=== PATIENT | male | born 1950 | race Caucasian/White ===

== ENCOUNTER 2023-12-07 06:30 | Day surgery (SDC) | payer MEDICARE, OTHER, SELFPAY ==
[2023-11-20 09:47] VITALS: BMI 28.4
[2023-12-07] VITALS (8 sets, daily range): BP systolic 113–138; BP diastolic 76–94; BMI 28.4
[2023-12-07] MEDS: TYLENOL 1000 MG PO (08:57)
[2023-12-07] MEDS: NORMOSOL-R 1000 IV (08:59)
--- NOTE | 2023-12-07 09:10 | W.SUR.PREOP ---
Pre-Operative Surgical Note
-
I have examined this patient prior to the performance of the scheduled procedure.
The patient's condition is unchanged from the time of the current History and
Physical and the patient is able to undergo the scheduled procedure.
The patient endorses drinking 2 Manhattans last night (4 equivalents of hard alcohol), and every night this week. In addition he smoked a small cigar this morning despite our preprocedure plan to not smoke on the day of surgery and stop drinking a
week before the procedure. He reiterates that he has no history of delirium tremens. He understands that he is a high risk for respiratory complications as well as perioperative wound complications and morbidity. He accepts these increased risks.
Our initial plan was to do this under general anesthesia LMA however given his smoking and drinking as well as his underlying comorbidities will do this under local and sedation.
--- NOTE | 2023-12-11 09:50 | W.IMMPOSTOP ---
Surgical Immed Post Op Note
-
Primary Surgeon: Refugio Horn MD
Assisting Surgeon: None
Decorating Kiln Operator: Josemanuel Gutierrez PGY1
Pre-op Diagnosis: Umbilical hernia
Post-op Diagnosis: Same
Procedure Performed: Open umbilical hernia repair with mesh
Anesthesia Type: General
Specimen / Cultures: None
Estimated Blood Loss: 1 cc
Complications: None
Operative Findings: 1.4 cm umbilical hernia repaired with a 4 x 4 centimeter piece of Bard soft mesh placed in the preperitoneal space ([place]). Overlying fascia closed with a running 0 PDS suture. Gauze suction dressing placed.
--- NOTE | 2023-12-15 11:16 | OR.RPT ---
Operative Report
Operative Report
Patient Name: Flaco Simons
: 1950
Date of Operation: 12/11/2023
Preoperative Diagnosis: Umbilical hernia
Postoperative Diagnosis: Same
Procedure(s):
Open umbilical hernia
Surgeon(s):
Dr. Horn
Tank Processor(s):
Josemanuel Gutierrez, PGY1
Anesthesia: General
Estimated Blood Loss: 1 cc
Urine Output: None
Drains/Lines/Implants: 4 x 4 centimeter Bard soft mesh (uncoated, macro porous polypropylene)
Specimens: None
Indication for surgery:
The patient has a symptomatic umbilical hernia. After review of their therapeutic options, they elected to pursue open repair.
Operative Findings: 1.4 cm umbilical hernia repaired with a 4 x 4 centimeter piece of Bard soft mesh placed in the preperitoneal space ([place]). Overlying fascia closed with a running 0 PDS suture. Gauze suction dressing placed.
Details of the operation:
After successful induction of anesthesia, the patient was prepped and draped in the supine position. A team timeout was performed confirming administration of DVT prophylaxis, IV antibiotics and SCDs. The skin was anesthestized with 0.25% Marcaine
and an infraumbilical incision was made and dissection carried down to the fascia. The hernia sac was then encircled and carefully dissected off of the umbilical stalk and returned to the abdomen. The defect measured 1.4 cm. The preperitoneal fat
was then dissected off of the posterior rectus sheath to create a pocket large enough to accommodate the mesh to ensure the 4 x 4 centimeter Bard soft mesh mesh laid completely flat in the preperitoneal space. A 0 PDS running suture was then used
to close the defect. The umbilical stalk was then tacked down to the fascia with a 3-0 Vicryl suture. The dermis was then approximated with interrupted 3-0 Vicryl sutures followed by Dermabond. Once the glue had dried, we placed a folded up piece
of gauze into the umbilicus and covered it with a large Tegaderm dressing and then suctioned out the gauze to create a vacuum dressing to help obliterate the space. The patient returned to the Recovery Room in stable condition. Sponge and
instrument counts were correct. No specimens sent to Pathology.
I was the attending physician and performed the procedure with assistance from the resident above. I was present for all portions of the case
Refugio Horn MD
== END 2023-12-07 12:30 | disposition home or self-care (01) ==
LOC: SDS 06:30
PROVIDERS: ATTENDING PHYSICIAN Surgery
DX: K42.9 Umbilical hernia without obstruction or gangrene (principal)
CPT/HCPCS: 49591

== ENCOUNTER → 2023-12-22 09:25 | Outpatient (REF) | payer MEDICARE, OTHER, SELFPAY | LOC: HWRCS 09:25 | PROVIDERS: ATTENDING PHYSICIAN Internal Medicine Cardiovascular Disease; FAMILY PHYSICIAN Physician Assistant Medical | DX: I25.5 Ischemic cardiomyopathy (principal); I95.9 Hypotension, unspecified; Z95.810 Presence of automatic (implantable) cardiac defibrillator | CPT/HCPCS: 93306 ==

== ENCOUNTER 2024-02-18 20:49 | Emergency (ER) | payer MEDICARE, OTHER, SELFPAY ==
[2024-02-18 20:51] VITALS: BP 159/97
[2024-02-18 20:58] VITALS: BP 142/94
[2024-02-18 21:03] VITALS: BP 142/94
[2024-02-18 21:11] LABS: Hematocrit 39.9 % (39.0-52.0); Hemoglobin 14.8 g/dL (13.0-18.0); Mean Corp Hgb Conc. 37.1 g/dL (33.0-37.0); Mean Corpuscular Hgb 32.4 pg (27.0-31.0); Mean Corpuscular Volume 87.3 fL (80.0-94.0); Mean Platelet Volume 8.6 fL (7.4-10.4); Platelet Count 182 10^3/uL (130-400); Red Blood Cell Count 4.57 10^6/uL (4.70-6.10); Red Cell Dist. Width 13.2 % (11.5-14.5); White Blood Cell Count 7.7 10^3/uL (4.8-10.8)
[2024-02-18 21:23] LABS: ALT (SGPT) 23 U/L (0-50); AST (SGOT) 31 U/L (17-59); Albumin 4.1 g/dl (3.5-5.0); Alkaline Phosphatase 104 U/L (38-126); Blood Urea Nitrogen 19 mg/dl (9-20); Calcium 9.6 mg/dl (8.4-10.2); Carbon Dioxide 27 mmol/L (22-30); Chloride 103 mmol/L (98-107); Glucose 106 mg/dl (70-99); Magnesium 1.8 mg/dl (1.6-2.3); Potassium 4.1 mmol/L (3.5-5.1); Sodium 138 mmol/L (135-145); Total Bilirubin 0.5 mg/dl (0.2-1.3); Total Protein 6.7 g/dl (6.3-8.2); eGFR > 60.00
--- NOTE | 2024-02-18 21:28 | ED.GENMED ---
History of Present Illness
General
Chief Complaint: Head Injury
Source: patient
Exam Limitations: none
Time Seen by Provider: 02/18/24 20:58
Nursing documentation reviewed up to this point in time: agreed with
History of Present Illness
History of Present Illness:
Patient with history of cardiomyopathy with pacemaker placement, presents to ED after 'blacking out' and falling down the stairs, when he stood up 'too fast', which has happened in the past. Patient denies preceding chest palpitations or shortness
of breath. Denies nausea or vomiting. Patient states that his did see him passed out from outside the window. Patient however, did wake up on his own shortly afterwards. Patient is complaining of multiple bruising on his body and headache.
Patient has taken ibuprofen prior to arrival without improvement symptoms. Event occurred approximately 4 hours prior to arrival. Patient denies dizziness. Denies blurred vision. Denies loss of sensation or weakness. Denies chest pain. Denies
nausea or vomiting.
Past History
Past History
ED Past Medical History: COPD, [place] (X 2) and Other (Recently diagnosed with laryngeal cancer, scheduled to start chemo and radiation therapy at [place] this month)
ED Past Surgical History: Cardiac (Stents X 2, Defibulator)
Social History
Tobacco: Smoker
Alcohol: Daily (Vodka 8 oz)
Personal:
Living: with family
Employment: Not employed
Family History
Family History: CAD
Review of Systems
Review of Systems
Allergies reviewed?: Yes
All Other Systems: ROS reviewed and negative except as documented in HPI and ROS
Constitutional: Reports no symptoms
EENT: Reports no symptoms
Respiratory: Reports no symptoms
Cardiac: Reports no symptoms
ABD/GI: Reports no symptoms
: Reports no symptoms
Musculoskeletal: Reports no symptoms
Skin: Reports other (abrasions)
Neurological: Reports headache
Phy Exam
Physical Exam
Physical Exam:
Physical Exam
General: mild painful distress, not acutely ill. afebrile
Head: left periorbital ecchymosis w swelling noted. eomi. perrla
Neck: in c-collar
Heart: s1/s2 regular rate and rhythm, no murmur. equal radial pulses.
Lungs: no acute respiratory distress. clear bilaterally. chest wall nontender to palpation.
Abdomen: normal bowel sounds. not tender.
Neuro: alert and oriented. no focal neurological deficits
Skin: multiple superficial abrasion noted over left anterior chest wall, abdomen, and b/l LE.
Psychiatric: well kept. interactive and cooperative
Extremities: no edema. no calf tenderness. normal range of motion.
Course
Orders/Labs/Results
Orders:
Orders
02/18/24 20:58
CT Chest/abd/pel W Iv Cont Urgent
Comment:
Reason For Exam: trauma
CT Head W/o Iv Contrast Urgent
Comment:
Reason For Exam: trauma with orbital ecchymosis
Cardiac Monitoring- Treatment ONCE
02/18/24 20:59
CT Cervical Spine W/o Iv Contr Urgent
Comment:
Reason For Exam: trauma
CT Facial Bones W/o Iv Contras Urgent
Comment:
Reason For Exam: trauma
02/18/24 21:00
Electrocardiogram (*1) Urgent
Reason for Study: Syncope
EKG- Treatment ONCE
02/18/24 21:04
Alcohol Urgent
Complete Blood Count/No Diff Urgent
Comprehensive Metabolic Panel Urgent
Magnesium Urgent
02/18/24 21:14
HYDROmorphone [Dilaudid] 0.5 mg IV NOW STA
Abnormal Lab Results
02/18/24
21:04
RBC 4.57 L 10^6/uL
(4.70-6.10)
MCH 32.4 H pg
(27.0-31.0)
MCHC 37.1 H g/dL
(33.0-37.0)
Glucose 106 H mg/dl
(70-99)
02/18/24 21:04
02/18/24 21:04
Vital Signs
Initial and Last Documented VS:
Initial Vital Signs
Temp Pulse Resp BP Pulse Ox
97.9 F 73 18 159/97 94
02/18/24 20:51 02/18/24 20:51 02/18/24 20:51 02/18/24 20:51 02/18/24 20:51
Last Documented Vital Signs
Temp Pulse Resp BP Pulse Ox
97.9 F 62 12 128/76 90
02/18/24 20:51 02/18/24 23:15 02/18/24 23:15 02/18/24 23:00 02/18/24 23:15
MDM/Problems Addressed
MDM/Problems Addressed:
Patient evaluated immediately upon arrival, secondary to potential significant trauma mechanism with evidence of head injury. Patient placed in c-collar immediately.
CT head, cervical spine, chest/abdomen/pelvis ordered immediately.
CT without any acute findings.
B/L patellar abrasion noted without sig. swelling with normal range of motion of hip/knee. no indication for any imaging studies at this time.
Patient remains alert, awake, oriented, and hemodynamically stable. Patient will be discharged home in stable condition, to the care of of his , with recommendation to follow-up with PCP for reevaluation.
*EKG
Interpreted by ED Provider?: Yes
EKG Intrepretation Date: 02/18/24
Heart Rate: 62
Rate: normal
Rhythm: sinus
[place]: normal axis
Interval: normal interval
*Critical Care Note
Total Time (30-74mins, 75-104mins- exclusive of procedures): Not Applicable
ED Attending Note
-
Portions of this chart may have been created with voice recognition software.� Occasional wrong word or��sound alike� substitutions may have occurred due to the inherent limitations of voice recognition software.
Discharge Plan
Departure
Patient Disposition: Home (Routine Discharge)
Date of Disposition: 02/18/24
Time of Disposition: 22:58
Patient with high blood pressure during this ER visit?: Yes
Condition: Good
Discharge Problem:
Syncope, Contusion, Abrasion
Instructions: Contusion (DC), Syncope (Fainting) (DC), Abrasions ED
Prescriptions:
No Action
carvedilol 6.25 MG tablet
3.125 mg PO BID
sotalol 80 MG tablet
80 mg PO BID
nitroglycerin 0.4 MG tablet, sublingual
0.4 mg sublingual [id number] PRN (Reason: Chest pain)
atorvastatin 80 MG tablet
80 mg PO QPM
aspirin 81 MG tablet,delayed release (DR/EC)
81 mg PO DAILY
sertraline [Zoloft] 50 mg Tablet
75 mg PO DAILY
Rx Instructions:
1.5 TAB per spouse
acetaminophen [acetaminophen] 325 mg tablet
650 mg PO Q6HPRN PRN (Reason: mild pain) Qty: 14 0RF
ibuprofen 600 mg tablet
600 mg PO Q6H PRN (Reason: pain) Qty: 14 0RF
Referrals:
Shelley Landeros PA-C [Family Provider] -
Activity Restrictions/Additional Instructions:
As discussed, please be extra careful when changing positions, i.e. standing up from sitting position. In addition, recommend increase fluid intake at home along with PCP follow-up as an outpatient. In ED, CT scan did not reveal any acute abnormal
findings. Please continue to apply ice to your face, to reduce swelling.
Interventions
Interventions:
*Risk Screen - Suicide Last Done: 02/18/24 21:13
*General Assessment Last Done: 02/18/24 20:51
*Neglect/Abuse Screening Last Done: 02/18/24 20:51
*ED COVID-19 Vaccine History Last Done: 02/18/24 23:31
*Nursing Disposition Last Done: 02/18/24 23:31
ED- Neurological Assessment Last Done: 02/18/24 21:11
ED-Skin Assessment Last Done: 02/18/24 21:12
Discharge Date and Time
Discharge Date/Time: 02/18/24 23:32
Print Language: SINHALA
[2024-02-18 21:42] LABS: Alcohol 10 mg/dl
[2024-02-18] MEDS: DILAUDID 0.5 MG IV (21:55)
[2024-02-18 22:00] VITALS: BP 157/87
[2024-02-18 23:00] VITALS: BP 128/76
== END 2024-02-18 23:32 | disposition home or self-care (01) ==
LOC: EMR 20:49
PROVIDERS: EMERGENCY PHYSICIAN Emergency Medicine; FAMILY PHYSICIAN Physician Assistant Medical
DX: R55 Syncope and collapse (principal); S00.12XA Contusion of left eyelid and periocular area, initial encounter; S80.212A Abrasion, left knee, initial encounter; W10.9XXA Fall (on) (from) unspecified stairs and steps, initial encounter; J44.9 Chronic obstructive pulmonary disease, unspecified; I25.2 Old myocardial infarction; I42.9 Cardiomyopathy, unspecified; F17.200 Nicotine dependence, unspecified, uncomplicated; Z82.49 Family history of ischemic heart disease and other diseases of the circulatory system; Z85.21 Personal history of malignant neoplasm of larynx; Z95.0 Presence of cardiac pacemaker; Z95.5 Presence of coronary angioplasty implant and graft
CPT/HCPCS: 99284; 96374; 70450; 70486; 71260; 72125; 74177; 80053; 82077; 83735; 85027; 93005; Q9967